=== PATIENT | female | born 1960 | race Two or more races ===

== ENCOUNTER 2024-02-25 19:40 | Emergency (ER) | payer MEDICAID, SELFPAY ==
[2024-02-25 19:42] VITALS: BMI 31.1
--- NOTE | 2024-02-25 20:01 | EKG_ITS ---
[facility] Test Date: 2024-02-25 Pat Name: JENNY JACOBS Department: Room: - Gender: Female [employer]: : 1960 Requested By: George Burr Order Number: [id number] Reading MD: George Burr Measurements Intervals [place] Rate: 63 P: 83 ID: [id number] QRS: 66 QRSD: 87 T: 60 QT: 392 QTc: 402 Interpretive Statements SINUS RHYTHM LOW QRS VOLTAGE IN PRECORDIAL LEADS [QRS DEFLECTION < 1.0 mV IN CHEST LEADS] Compared to ECG 02/04/2023 22:55:12 No significant changes /store/S0/[id number].pdf
[2024-02-25 20:58] VITALS: BP 109/78; PULSE 63; RESP 24; TEMP 36.8; O2SAT 95
--- NOTE | 2024-02-25 21:23 | EDRME_ITS ---
Rapid Medical Screening Exam [facility] Arrival date/time: 02/25/24 19:40 63F with history of asthma presents to ED with 1 day of cough and SOB. Rescue inhaler didn't help. Chief Complaint: Flu Like Symptoms Time Seen by Provider: 02/25/24 20:42 Vital signs: Vital Signs Temperature 98.3 F 02/25/24 20:58 Pulse Rate 63 02/25/24 20:58 Respiratory Rate 24 H 02/25/24 20:58 Blood Pressure 109/78 02/25/24 20:58 Pulse Oximetry (%) 95 02/25/24 20:58 Oxygen Delivery Method Room Air 02/25/24 20:58
--- NOTE | 2024-02-25 21:23 | XR_ITS ---
Examination: PA chest single view Technique: Upright PA chest single view Exam date and time: February 25, 2024 2159 hrs. Indications: Shortness of breath coughing beginning 2 days ago Findings: No significant cardiac enlargement No pneumonia or pulmonary edema The osseous structures are intact Impression: No active disease
[2024-02-25] MEDS: IPRATROPIUM RT 0.5 MG/ 2.5 ML NEBU 1 MG INH (22:43)
[2024-02-25] MEDS: LEVALBUTEROL RT 1.25 MG/0.5 ML NEBU 5 MG INH (22:43)
[2024-02-25] MEDS: SODIUM CHLORIDE RT SOL 0.9% 3 ML NEBU INH (22:43)
[2024-02-25 22:44] VITALS: PULSE 64; RESP 20; O2SAT 100
[2024-02-25 22:48] LABS: Basophils % (Auto) 1 % (0-2.5); Eosinophils # (Auto) 0.2 Thou/mm3 (0.0-0.5); Eosinophils % (Auto) 2 % (0-10); Hematocrit 38.1 % (36.0-46.0); Hemoglobin 12.5 g/dL (12.0-16.0); Immature Granulocytes % (Auto) 0 % (0-0); Immature Granulocytes Auto 0.01 Thou/mm3 (0.00-0.00); Lymphocytes # (Auto) 2.8 Thou/mm3 (1.0-4.8); Lymphocytes % (Auto) 35 % (10-50); Mean Corpuscular HGB Conc 32.8 g/dl (31.0-37.0); Mean Corpuscular Hemoglobin 28.2 pg (25.0-35.0); Mean Corpuscular Volume 86 fL (80-100); Monocytes # (Auto) 0.7 Thou/mm3 (0.0-0.8); Monocytes % (Auto) 9 % (0-12); Neutrophils # (Auto) 4.1 Thou/mm3 (1.8-7.7); Neutrophils % (Auto) 53 % (37-80); Nucleated Red Blood Cell % 0 /100 WBC (0); Platelet Count 293 Thou/mm3 (140-440); RDW Standard Deviation 42.5 fL (36.4-46.3); Red Blood Count 4.43 Miln/mm3 (4.00-5.20); White Blood Count 7.8 Thou/mm3 (3.6-11.0)
[2024-02-25] MEDS: DEXAMETHASONE SOD PHOS INJ 10 MG/ML VIAL PO (22:55)
[2024-02-25 22:59] VITALS: BP 111/56; PULSE 60; RESP 18; O2SAT 100
[2024-02-25 23:11] LABS: Alanine Aminotransferase 31 U/L (10-49); Albumin, Serum 4.6 gm/dL (3.4-4.8); Albumin/Globulin Ratio 1.8 (1.2-2.2); Alkaline Phosphatase 110 U/L (46-116); Anion Gap 9 (7-16); Aspartate Amino Transferase 26 U/L (0-34); BUN/Creatinine Ratio 15 Ratio (12-20); Bilirubin,Total 0.4 mg/dL (0.3-1.2); Blood Urea Nitrogen 9 mg/dL (9-23); Calcium 9.5 mg/dL (8.3-10.6); Calcium (Corrected) 9.5 mg/dL (8.5-10.1); Chloride 106 mMol/L (98-107); Creatinine (Component) 0.6 mg/dL (0.6-1.3); Estimated Creatinine Clearance 80.6 mL/min (>60); Globulin 2.6 gm/dL (2.3-3.5); Glucose 94 mg/dL (74-106); Osmolality,Calculated 281 (275-295); Potassium 3.7 mMol/L (3.4-5.1); Procalcitonin < 0.04 ng/ml (0.0-0.49); Sodium 142 mMol/L (136-145); Total Protein 7.2 gm/dL (5.7-8.2); Troponin I < 0.002 ng/mL (0.0-0.045); eGFR > 60 See Note
--- NOTE | 2024-02-26 00:03 | PD.EDSOB ---
ED SOB =RME/HPI General Chief Complaint: Flu Like Symptoms Stated Complaint: COUGH, HX ASTHMA Time Seen by Provider: 02/25/24 20:42 Arrival date/time: 02/25/24 19:40 Limitations: no limitations RME / HPI RME / HPI Narrative: 02/25/24 19:40 63F with history of asthma presents to ED with 1 day of cough and SOB. Rescue inhaler didn't help. ----- Dr. Jimenez's Main ED Evaluation: 63yo female with a history of asthma presents to the ED for a chief complaint of shortness of breath, cough, and wheezing. Patient denies any N/V, fever, chills, or any other associated symptoms. She used her rescue inhaler without any improvement of symptoms. No known allergies. Related Data Previous Rx's ?Medication ?Instructions ?Recorded albuterol sulfate 90 mcg/actuation 2 puff inhalation Q4H PRN 07/20/21 aerosol inhaler shortness of breath #8.5 grams fluticasone 250 mcg-salmeterol 50 1 each inhalation Q12H #60 ea 07/20/21 mcg/dose blistr powdr for inhalation (Advair Diskus) albuterol sulfate 2.5 mg/3 mL 2.5 mg (3 mL) inhalation Q4H PRN 02/05/23 (0.083 %) solution for nebulization shortness of breath or wheezing #75 mL albuterol sulfate 90 mcg/actuation 2 puff inhalation Q4H PRN 02/05/23 aerosol inhaler shortness of breath or wheezing #18 grams benzonatate 100 mg capsule 200 mg (2 x 100 mg) PO Q6H PRN 02/05/23 cough #30 caps dextromethorphan polistirex 30 10 ml PO Q12H PRN cough #240 mL 02/05/23 mg/5 mL oral susp ext.release 12hr (Delsym 12 hour) fluticasone 250 mcg-salmeterol 50 1 inh inhalation BID #60 ea 02/05/23 mcg/dose blistr powdr for inhalation (Advair Diskus) albuterol sulfate 90 mcg/actuation 2 puff inhalation Q6H PRN 02/08/24 aerosol inhaler (Ventolin HFA) shortness of breath or wheezing #8.5 grams benzonatate 100 mg capsule 100 mg PO TID #14 caps 02/08/24 prednisone 50 mg tablet 50 mg PO QDAY #7 tabs 02/26/24 Allergies Allergy/AdvReac Type Severity Reaction Status Date / Time No Known Allergies Allergy Verified 02/25/24 19:47 Review of Systems Review of Systems Systems Reviewed: All systems reviewed, normal except as documented ED Exam General Limitations: Present no limitations General appearance: Present alert and in no apparent distress Head Head exam: Present atraumatic Eye Eye exam: Present normal appearance, PERRL and EOMI ENT ENT exam: Present normal exam, normal oropharynx and mucous membranes moist Neck Neck exam: Present normal inspection, full ROM and trachea midline Chest Chest inspection: Present normal inspection and symmetric chest wall rise Respiratory Respiratory exam: Present normal lung sounds bilaterally and wheezes; Absent accessory muscle use Cardiovascular Cardiovascular exam: Present regular rate, normal rhythm and normal heart sounds Abdominal Exam Abdominal exam: Present soft and normal bowel sounds Extremities Exam Extremities exam: Present normal inspection and full ROM Back Exam Back exam: Present normal inspection and full ROM Neurological Exam Neurological exam: Present alert, oriented X3 and CN II-XII intact Psychiatric Psychiatric exam: Present normal affect and normal mood Skin Skin exam: Present warm, dry, intact and normal color Course Course Course Narrative: CXR is ordered for determining the etiology of shortness of breath. 0003: Patient still has minmal wheezing to both bases. Quality Measures none Orders Category Date Time Status Bedside Influenza A&B Antigen Test NOW Care 02/25/24 20:01 Completed EKG (ED ONLY) *Do not use* NOW Care 02/25/24 20:01 Completed EKG (ED Only) Stat Exams 02/25/24 20:01 Draft XR chest 1V portable Stat Exams 02/25/24 21:23 Completed CBC Stat Lab 02/25/24 21:45 Completed CMP [Comprehensive Metabolic Panel] Stat Lab 02/25/24 21:45 Completed Procalcitonin Stat Lab 02/25/24 21:45 Completed Troponin I Stat Lab 02/25/24 21:45 Completed Troponin I Stat Lab 02/26/24 00:21 Completed Albuterol/Ipratr Rt Naida [Duoneb Rt Naida] Med 02/26/24 00:03 Discontinued 3 ml INH X1 ONE Dexamethasone Inj [Decadron Inj] Med 02/25/24 21:24 Discontinued 10 mg PO X1 ONE Ipratropium Sturdivant Rt Naida [Atrovent Rt Naida] Med 02/25/24 21:24 Discontinued 1 mg INH X1 ONE Levalbuterol Rt [Xopenex Rt Naida] Med 02/25/24 21:24 Discontinued 5 mg INH X1 ONE Sodium Chloride Rt Naida 0.9% [NS Rt Naida 0.9%] Med 02/25/24 21:24 Active 3 ml INH PRN PRN Vital Signs Vital signs: Vital Signs Temperature 98.3 F 02/25/24 20:58 Pulse Rate 63 02/25/24 20:58 Respiratory Rate 24 H 02/25/24 20:58 Blood Pressure 109/78 02/25/24 20:58 Pulse Oximetry (%) 95 02/25/24 20:58 Oxygen Delivery Method Room Air 02/25/24 20:58 Pulse ox is 95% on room air, which is normal according to my interpretation. Shortness of Breath / Dyspnea Patient data External records reviewed:: [facility] previous records (Per chart review, patient was seen here on 02/08/24 for URI.) Clinical information provided by:: patient Social determinants that could affect healthcare access:: none Patient has the following chronic illnesses:: asthma How is presenting disease/condition affected by chronic disease/condition?: exacerbated by Evaluation data The following diagnostics were reviewed and interpreted by me:: lab results, radiology exam(s) and EKG tracing(s) Lab and/or radiology exams considered but not ordered:: none Interpretation Summary: CBC is normal, CMP is normal, Initial and Repeat Troponins are normal, according to my interpretation. CXR is negative for any CXR, cardiomegaly, or pneumothorax, according to my interpretation. EKG done at 2100, NSR, rate of 63, low voltage, no ST elevations or depressions, QTc: 399, similar to EKG done in 02/2023, according to my interpretation. Medications / Prescriptions Medications or Prescriptions considered but not ordered:: none Medication administrations:: Medication Administration History Sodium Chloride (Sodium Chloride Rt Naida 0.9% 3 Ml Nebu) 3 ml INH PRN PRN PRN Reason: SOLN Stop: 03/26/24 21:23 Last Admin: 02/25/24 22:43 Dose: 3 ml Documented By: GB Discontinued Medications Albuterol/Ipratropium (Albuterol/Ipratropium (Duoneb) Rt Naida 3 Ml Nebu) 3 ml INH X1 ONE Stop: 02/26/24 00:04 Last Admin: 02/26/24 00:23 Dose: 3 ml Documented By: SHELBIE Dexamethasone Sodium Phosphate (Dexamethasone Sod Phos Inj 10 Mg/Ml Vial) 10 mg PO X1 ONE Stop: 02/25/24 21:25 Last Admin: 02/25/24 22:55 Dose: 10 mg Documented By: ANIBAL Comments: MED GIVEN po Ipratropium Sturdivant (Ipratropium Rt 0.5 Mg/ 2.5 Ml Nebu) 1 mg INH X1 ONE Stop: 02/25/24 21:25 Last Admin: 02/25/24 22:43 Dose: 1 mg Documented By: SHELBIE Levalbuterol HCl (Levalbuterol Rt 1.25 Mg/0.5 Ml Nebu) 5 mg INH X1 ONE Stop: 02/25/24 21:25 Last Admin: 02/25/24 22:43 Dose: 5 mg Documented By: SHELBIE see above Consultations Consultation(s) initiated? (list below): No Diagnosis Shortness of Breath Differential Diagnosis: congestive heart failure, community acquired pneumonia, asthma with exacerbation, pulmonary embolism and other (URI) Most likely diagnosis given after review of the tests above:: see below Admission Indicated Admission indicated?: not indicated Admission Request Was there a request for admission?: No Disposition Plan Disposition Plan: Discharge Discharge Attestation Discharge Attestation: The patient and all family members were given an opportunity to ask questions and understood the discharge instructions. Discharge instructions specifically effects, indications for sooner follow up or return to the emergency department, and the expected course of current diagnosis. Patient condition: Stable Discharge Plan Plan Patient Disposition: HOME (Self Care) Prescriptions/Referrals Prescriptions/Med Rec: New prednisone 50 mg tablet 50 mg PO QDAY Qty: 7 0RF No Action fluticasone propion-salmeterol [Advair Diskus] 250-50 mcg/dose blister with device 1 each INH Q12H MDD 2 Qty: 60 0RF albuterol sulfate 90 mcg/actuation HFA aerosol inhaler 2 puff INH Q4H PRN (Reason: shortness of breath) Qty: 8.5 0RF albuterol sulfate 90 mcg/actuation HFA aerosol inhaler 2 puff inhalation Q4H PRN (Reason: shortness of breath or wheezing) Qty: 18 0RF fluticasone propion-salmeterol [Advair Diskus] 250-50 mcg/dose blister with device 1 inh inhalation BID Qty: 60 0RF albuterol sulfate 2.5 mg /3 mL (0.083 %) solution for nebulization 2.5 mg inhalation Q4H PRN (Reason: shortness of breath or wheezing) Qty: 75 0RF dextromethorphan polistirex [Delsym 12 hour] 30 mg/5 mL suspension,extended rel 12 hr 10 ml PO Q12H PRN (Reason: cough) Qty: 240 0RF benzonatate 100 mg capsule 200 mg PO Q6H PRN (Reason: cough) Qty: 30 0RF benzonatate 100 mg capsule 100 mg PO TID Qty: 14 0RF albuterol sulfate [Ventolin HFA] 90 mcg/actuation HFA aerosol inhaler 2 puff inhalation Q6H PRN (Reason: shortness of breath or wheezing) Qty: 8.5 0RF Referrals: No Primary/Family,Physician [Primary Care Provider] - In 1 week Problem List Clinical Impression: Asthma with exacerbation Patient/Caregiver Discharge Instructions Education Materials: Asthma Print Language: Bangladeshi Stand Alone Forms: [facility]ora Award Info., Patient Portal Info Letter
[2024-02-26] MEDS: ALBUTEROL/IPRATROPIUM (Duoneb) RT SOL 3 ML NEBU INH (00:23)
[2024-02-26 00:25] VITALS: PULSE 66; RESP 20; O2SAT 100
[2024-02-26 01:12] LABS: Troponin I < 0.002 ng/mL (0.0-0.045)
[2024-02-26 01:38] VITALS: BP 115/72; PULSE 80; RESP 18; TEMP 37.2; O2SAT 95
== END 2024-02-26 01:41 | disposition home or self-care (01) ==
PROVIDERS: Physician Assistant; Emergency Provider Emergency Medicine
DX: J45.901 Unspecified asthma with (acute) exacerbation (principal)
CPT/HCPCS: 36415; 71045; 80053; 84145; 84484; 85025; 87400; 93005; 94640; 94644; 99284; A9270; J1100